=== PATIENT | female | born 1960 | race Caucasian/White ===

== ENCOUNTER 2023-06-03 13:26 | Day surgery (SDC) | payer MEDICARE ==
[2023-06-02 10:16] VITALS: BMI 34.9
[2023-06-03] MEDS ORDERED: fentaNYL PF 100 MCG/2 ML SYRINGE ONE (16:42)
[2023-06-03] MEDS ORDERED: Lidocaine 1% PF 5 ML VIAL ONE ×2 (16:42→16:45)
[2023-06-03] MEDS ORDERED: Dexamethasone 4 mg/ml Vial ONE (16:42)
[2023-06-03] MEDS ORDERED: PROPOFOL 40 ML ONE (16:42)
[2023-06-03] MEDS ORDERED: Ondansetron PF 4 MG/2 ML Vial ONE (16:42)
[2023-06-03] MEDS ORDERED: Rocuronium Bromide 10 MG/ML (10ML VIAL) ONE (16:45)
[2023-06-03] MEDS ORDERED: Bupivacaine PF 0.5% 30 ML VIAL ONE (16:47)
[2023-06-03] MEDS ORDERED: Bacitracin Zinc Ointment 30 gm TUBE ONE (16:47)
== END 2023-06-03 17:50 | disposition home or self-care (01) ==
LOC: SDC 13:26
PROVIDERS: ATTEND Orthopaedic Surgery Hand Surgery
DX: T84.84XA Pain due to internal orthopedic prosthetic devices, implants and grafts, initial encounter (principal); Y82.9 Unspecified medical devices associated with adverse incidents; Z53.8 Procedure and treatment not carried out for other reasons
CPT/HCPCS: J0665; J1100; J2405; J2704

== ENCOUNTER 2023-06-07 06:04 | Day surgery (SDC) | payer MEDICARE ==
[2023-06-06 13:45] VITALS: BMI 34.9
[2023-06-07] MEDS ORDERED: Bacitracin Zinc Ointment 30 gm TUBE ONE (06:20)
[2023-06-07] MEDS ORDERED: Bupivacaine PF 0.5% 30 ML VIAL ONE (06:20)
[2023-06-07] MEDS ORDERED: Fentanyl 250 MCG/5 ML VIAL ONE (06:59)
[2023-06-07] MEDS ORDERED: PROPOFOL 40 ML ONE (06:59)
[2023-06-07] MEDS ORDERED: Sodium Chloride 0.9% 100 ML ONE (07:03)
[2023-06-07] MEDS ORDERED: CEFAZOLIN 2 GM VIAL ONE (07:03)
[2023-06-07] MEDS ORDERED: Ondansetron PF 4 MG/2 ML Vial ONE (07:04)
[2023-06-07] MEDS ORDERED: Dexamethasone 4 mg/ml Vial ONE (07:04)
[2023-06-07] MEDS ORDERED: Lidocaine 1% PF 5 ML VIAL ONE (07:15)
[2023-06-07] MEDS ORDERED: Glycopyrrolate 0.2 MG/ML 5 ML SYRINGE ONE (07:29)
[2023-06-07] MEDS ORDERED: Ketorolac Tromethamine 30 MG (1 mL) VIAL ONE (07:53)
[2023-06-07] MEDS ORDERED: ePHEDrine Sulfate 50 MG/10 ML VIAL ONE (07:55)
[2023-06-07] MEDS ORDERED: fentaNYL 50 mcg/mL 1 mL Vial ONE ×2 (08:27→09:00)
== END 2023-06-07 10:05 | disposition home or self-care (01) ==
LOC: SDC 06:04
PROVIDERS: ATTEND Orthopaedic Surgery Hand Surgery
PROC: 0RGV04Z Fusion of Left Metacarpophalangeal Joint with Internal Fixation Device, Open Approach (ICD-10-PCS; principal; 2023-06-07)
DX: T84.84XA Pain due to internal orthopedic prosthetic devices, implants and grafts, initial encounter (principal); M18.12 Unilateral primary osteoarthritis of first carpometacarpal joint, left hand; M18.11 Unilateral primary osteoarthritis of first carpometacarpal joint, right hand; D64.9 Anemia, unspecified; F41.9 Anxiety disorder, unspecified; F32.A Depression, unspecified; K21.9 Gastro-esophageal reflux disease without esophagitis; Z90.49 Acquired absence of other specified parts of digestive tract; Z98.890 Other specified postprocedural states; Z87.891 Personal history of nicotine dependence; Z79.899 Other long term (current) drug therapy; Y83.9 Surgical procedure, unspecified as the cause of abnormal reaction of the patient, or of later complication, without mention of misadventure at the time of the procedure
CPT/HCPCS: 26516; 73120; J3010; A6223; C1894; J0665; J1100; J1885; J2405; J2704; J3490

== ENCOUNTER 2023-11-18 08:53 | Outpatient (CLI) | payer MEDICARE ==
[2023-11-18 10:43] LABS: #Basophils 0.04 10x3/uL (0.0-0.2); %Basophils 0.6 % (0.0-1.0); %Lymphocytes 30.7 % (21.0-51.0); %Monocytes 7.6 % (0.0-10.0); %Neutrophils 57.8 % (42.0-75.0); Hematocrit 42.2 % (36.0-47.0); Hemoglobin 13.6 g/dL (12.0-16.0); Mean Corpuscular HGB CONC 32.2 g/dL (32.0-36.0); Mean Corpuscular Hemoglobin 29.5 pg (27.0-31.0); Mean Corpuscular Volume 91.5 fL (78.0-98.0); Mean Platelet Volume 10.1 fL (7.4-10.4); Platelet Count 265 10x3/uL (130-400); RBC Distribution Width 13.1 % (11.5-14.5); Red Blood Cell (RBC) Count 4.61 mill/uL (4.20-5.40)
== END 2023-11-18 08:54 | disposition home or self-care (01) ==
LOC: LABBT 08:53
PROVIDERS: ATTEND Orthopaedic Surgery Hand Surgery
DX: Z01.818 Encounter for other preprocedural examination (principal); T84.84XA Pain due to internal orthopedic prosthetic devices, implants and grafts, initial encounter
CPT/HCPCS: 85025; 93005; 93010

== ENCOUNTER 2025-01-22 10:13 | Outpatient (CLI) | payer MEDICARE | END 2025-01-22 10:14 | disposition home or self-care (01) | LOC: BICRAD 10:13 | PROVIDERS: ATTEND Family Medicine | DX: R73.9 Hyperglycemia, unspecified (principal); R06.09 Other forms of dyspnea | CPT/HCPCS: 36415; 71046; 80048; 83036; 83880 ==

== ENCOUNTER 2025-02-11 14:56 | Outpatient (CLI) | payer MEDICARE | END 2025-02-11 14:57 | disposition home or self-care (01) | LOC: BICRAD 14:56 | PROVIDERS: ATTEND Family Medicine | DX: S90.32XA Contusion of left foot, initial encounter (principal); S20.229A Contusion of unspecified back wall of thorax, initial encounter; M47.816 Spondylosis without myelopathy or radiculopathy, lumbar region | CPT/HCPCS: 72110 ==

== ENCOUNTER 2025-02-19 13:58 | Emergency (ER) | payer MEDICARE | END 2025-02-19 15:43 | disposition home or self-care (01) | LOC: ERS 13:58 | DX: S92.352A Displaced fracture of fifth metatarsal bone, left foot, initial encounter for closed fracture (principal); W20.8XXA Other cause of strike by thrown, projected or falling object, initial encounter ==